=== PATIENT | female | born 1985 | race Asian ===

== ENCOUNTER 2020-03-19 22:56 | Outpatient (REF) | payer OTHER, SELFPAY ==
[2020-03-20 00:59] LABS: SARS COV2 PCR INHOUSE POSITIVE (Negative)
== END 2020-03-19 22:57 | disposition home or self-care (01) ==
LOC: HO.LAB 22:56
PROVIDERS: Visit Provider Internal Medicine
DX: Z20.828 Contact with and (suspected) exposure to other viral communicable diseases (principal)
CPT/HCPCS: 87635

== ENCOUNTER 2020-04-15 15:03 | Outpatient (REF) | payer SELFPAY ==
[2020-04-15 16:43] LABS: Cholesterol 185 mg/dL
== END 2020-04-15 15:04 | disposition home or self-care (01) ==
LOC: HO.LNC 15:03
PROVIDERS: Visit Provider Pathology Anatomic Pathology & Clinical Pathology
DX: E78.00 Pure hypercholesterolemia, unspecified (principal)
CPT/HCPCS: 82465

== ENCOUNTER 2020-08-29 16:44 | Outpatient (REF) | payer OTHER, SELFPAY ==
--- NOTE | ~2020-08-29 | XR_ITS ---
EXAMINATION: XR TOES, RIGHT CLINICAL INFORMATION: Pain, status post injury to the third toe COMPARISON: None TECHNIQUE: 3 views of the right toes were obtained. FINDINGS: There are no fractures or dislocations. No joint effusion is identified. No bone, joint or soft tissue abnormality is demonstrated. XR/XR toe RT min 2V IMPRESSION: No acute bony abnormality of the right third toe.
== END 2020-08-29 16:45 | disposition home or self-care (01) ==
LOC: HO.XRAY 16:44
PROVIDERS: PCP Internal Medicine; Visit Provider Nurse Practitioner Primary Care
DX: M79.674 Pain in right toe(s) (principal)
CPT/HCPCS: 73660

== ENCOUNTER 2025-05-26 15:12 | Outpatient (AMB) | payer BC, SELFPAY ==
--- NOTE | 2025-05-26 15:21 | A.OFFVIS_ITS ---
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 She is presenting for follow-up and management of nocturnal headaches. For the past two months, she has experienced an increase in headaches that occur frequently in the middle of the night, sometimes almost every other night, waking her from sleep. She typically takes Excedrin Migraine for these nocturnal headaches, which usually provides relief and allows her to return to sleep. If the Excedrin is not effective, she uses Ubrelvy, which she reports works well. She notes that headaches during the day are much less frequent now. The patient is on a daily preventive medication, topiramate, and also uses sumatriptan infrequently, approximately once every two to three months, for very severe migraines. Her daily caffeine intake is limited to one 10-ounce cup of coffee in the morning, and she does not drink soda. She previously changed her pillow, believing it might be the cause of her headaches, but this did not result in any improvement. Review of Systems Narrative - Neurological: Reports an increase in nocturnal headaches over the past two months, occurring almost every other night and waking her from sleep. She has fewer headaches during the day. - Genitourinary: Reports nocturia, which is associated with waking with a headache. Physical Exam Neuro Other: Mental Status: Alert and oriented to person, place, and time. Normal attention. Normal spontaneous speech, fluency, and comprehension. No obvious issues with mood and memory. Affect is appropriate. Cranial Nerves: CN II: Visual tamayo full to confrontation, visual acuity intact. CN III, IV, : Pupils equal, round, reactive to light and accommodation. Extraocular movements are normal. CN V: Facial sensation is normal. CN VII: Facial movements symmetrical. CN VIII: Hearing intact to bedside conversation is normal. CN IX, X: Palate elevates symmetrically. CN XI: Shoulder shrug and head turn symmetrical. CN XII: Tongue midline without atrophy or fasciculations. Extrapyramidal: Full facial expressions and blinking. No rigidity. Movements are appropriate with no tremor or abnormality. Speech: Normal; no dysarthria or tremor. Assessment & Plan Assessment & Plan (1) Migraine without aura: Comment: [place] brain [place] [facility] [place]: WNL MRI brain [place] [facility] [place]: WNL. Code(s): G43.009 - Migraine without aura, not intractable, without status migrainosus Category: Medical Qualifiers: Status migrainosus presence: without status migrainosus Intractability: not intractable Qualified Code(s): G43.009 - Migraine without aura, not intractable, without status migrainosus (2) Menstrual migraine: Code(s): G43.829 - Menstrual migraine, not intractable, without status migrainosus Category: Medical Qualifiers: Status migrainosus presence: without status migrainosus Intractability: not intractable Qualified Code(s): G43.829 - Menstrual migraine, not intractable, without status migrainosus Plan I discussed the patient's recent increase in nocturnal headaches and her frequent use of Excedrin Migraine. I recommended increasing her preventive medication, topiramate, from 25 mg to 50 mg to be taken at night to better manage these headaches. I advised her that if this change does not provide relief within three to four weeks, she should leave a message for the office. I also informed her that in approximately six months, her follow-up care will be transitioned to the nurse practitioner, Estephania, to accommodate more new patient appointments, but I will remain available if any problems arise. Medications: New ubrogepant (Ubrelvy) 100 mg PO ONCE PRN 10 tabs 2RF headache 30 days topiramate 50 mg PO ONCE 90 tabs 0RF 90 days Coding Level of Care Code Est Pt Level 3 (33250) Diagnoses Migraine without aura and without status migrainosus, not intractable G43.009 Status migrainosus presence: without status migrainosus Intractability: not intractable Menstrual migraine without status migrainosus, not intractable G43.829 Status migrainosus presence: without status migrainosus Intractability: not intractable
--- OUTSIDE RECORDS SUMMARY | 2025-05-26 17:24 | XMS_ITS | Encounter Summary ---
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 [place] [id number] Provider, Generic Social History Tobacco Use Types Packs/Day Years Used Date Smoking Tobacco: Never Assessed Comments Unknown Sex and Gender Information Value Date Recorded Sex Assigned at Not on file Legal Sex Female 6:22 PM EST Gender Identity Not on file Sexual Orientation Not on file documented as of this encounter Plan of Treatment Not on file documented as of this encounter Visit Diagnoses Not on filedocumented in this encounter Care Teams Ship'S Cook Relationship Specialty Start Date End Date Pcp, No PCP - General General Medicine 12/21/24 documented as of this encounter
--- OUTSIDE RECORDS SUMMARY | 2025-05-26 17:24 | XMS_ITS | Clinical Summary ---
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 11/21/2024 Active SUMAtriptan (IMITREX) 50 MG tablet Take 50 mg by mouth daily as needed. 09/25/2024 Active Ubrelvy 100 MG tablet Take 100 mg by mouth daily as needed. 09/25/2024 Active Active Problems No known active problems Social History Tobacco Use Types Packs/Day Years Used Date Smoking Tobacco: Never Assessed Comments Unknown Sex and Gender Information Value Date Recorded Sex Assigned at Not on file Legal Sex Female 6:22 PM EST Gender Identity Not on file Sexual Orientation Not on file Last Filed Vital Signs Vital Sign Reading Time Taken Comments Blood Pressure 132/95 12/21/2024 6:35 PM EDT Pulse 72 12/21/2024 6:35 PM EDT Temperature 37 C (98.6 F) 12/21/2024 6:35 PM EDT Respiratory Rate - - Oxygen Saturation 95% 12/21/2024 6:35 PM EDT Inhaled Oxygen Concentration - - Weight 65.8 kg (145 lb) 12/21/2024 6:35 PM EDT Height 167.6 cm (5' 6 ) 12/21/2024 6:35 PM EDT Body Mass Index 23.4 12/21/2024 6:35 PM EDT Plan of Treatment Health Maintenance Due Date Last Done Comments Hepatitis C Virus Screening 1984 HIV Screening 1997 DTaP/Tdap/Td Vaccines (1 - Tdap) 2003 Hepatitis B Vaccines (1 of 3 - 19+ 3-dose series) 2003 Pap Smear (Ages 21-65) 2005 Mammogram 2024 Influenza Vaccine 12/27/2024 COVID-19 Vaccine (2024-2 6 season) 2025 HPV Vaccines (No Doses Required) Completed Pneumococcal Vaccine: Pediat mario (0-5 Years) and At-Risk Patients (6 to 49 Years) Aged Out No longer eligible b ased on patient's age to complete this topic Insurance PPO Care Teams [employer] Relationship Specialty Start Date End Date Pcp, No PCP - General General Medicine 12/21/24
== END 2025-05-26 15:29 | disposition home or self-care (01) ==
LOC: HO.HSM 15:13
PROVIDERS: PCP Internal Medicine; Visit Provider Psychiatry & Neurology Neurology
DX: G43.009 Migraine without aura, not intractable, without status migrainosus (principal); G43.829 Menstrual migraine, not intractable, without status migrainosus
CPT/HCPCS: 99213